=== PATIENT | female | born 2000 | race Caucasian/White ===

== ENCOUNTER 2020-02-16 16:11 | Emergency (ER) | payer MEDICAID, OTHER ==
[2020-02-16 16:22] VITALS: BP 105/67
--- NOTE | 2020-02-16 17:44 | ED Physician Documentation ---
PD HPI LOWER EXT INJURY - Stated complaint Stated Complaint: RT LEG LAC - Chief complaint Chief Complaint: Laceration - History obtained from History obtained from: Patient - Additional information Additional information: Patient comes emergency department complaining of a leg laceration on the right. She states that it happened when she was taking out the trash. Her mother had put some broken glass from a picture frame into the trash bag, and patient did not realize it was there. While she was caring out the trash, the bag brushed against her leg, and the glass broke through and cut the lateral aspect of her calf. Patient denies any other injuries at this time. She has not had any difficulty ambulating or moving the ankle and toes. She states the incident happened within the last hour. No other complaints at this time.Patient states her last tetanus shot was about 8 years ago. Review of Systems Ten Systems: 10 systems reviewed and negative Constitutional: reports: Reviewed and negative Eyes: reports: Reviewed and negative Ears: reports: Reviewed and negative Nose: reports: Reviewed and negative Throat: reports: Reviewed and negative Cardiac: reports: Reviewed and negative Respiratory: reports: Reviewed and negative GI: reports: Reviewed and negative : reports: Reviewed and negative Skin: reports: Laceration (s) Musculoskeletal: reports: Reviewed and negative Neurologic: reports: Reviewed and negative Psychiatric: reports: Reviewed and negative Endocrine: reports: Reviewed and negative Immunocompromised: reports: Reviewed and negative PD PAST MEDICAL HISTORY - Past Surgical History Past Surgical History: No - Present Medications Home Medications: Ambulatory Orders Medication Instructions Recorded Confirmed No Known Home Medications 12/29/15 12/29/15 - Allergies Allergies/Adverse Reactions: Allergies Allergy/AdvReac Type Severity Reaction Status Date / Time No Known Drug Allergies Allergy Verified 12/29/15 16:44 - Social History Does the pt smoke?: No Smoking Status: Never smoker Does the pt drink ETOH?: No Does the pt have substance abuse?: No - Immunizations Immunizations are current?: Yes - POLST Patient has POLST: No PD ED PE NORMAL - Vitals Vital signs reviewed: Yes - General General: Alert and oriented X 3, No acute distress - HEENT HEENT: Atraumatic, PERRL, EOMI, Moist mucous membranes - Neck Neck: Supple, no meningeal sign - Cardiac Cardiac: Strong equal pulses - Respiratory Respiratory: No respiratory distress - Derm Derm: Normal color, Warm and dry, No rash, Other (Patient has a 3-1/2 cm linear laceration to the proximal aspect of her lateral right lower leg. Bleeding is controlled. Laceration depth ranges from approximately 3 to 5 mm across its length.) - Extremities Extremities: No deformity - Neuro Neuro: Alert and oriented X 3 - Psych Psych: Normal mood, Normal affect Results - Vitals Vitals: Vital Signs - 24 hr 02/16/20 16:18 Temperature 36.5 C Heart Rate 86 Respiratory 16 Rate Blood Pressure 105/67 O2 Saturation 97 Oxygen O2 Source Room air Procedures - Laceration (location) R leg Length in cm: 3.5 Wound type: Linear, Into subcut fat, Clean Neurovascular status: Sensory intact, Motor intact, Vascular intact Tendon involvement: No: Tendon Injury Anesthesia: Lidocaine 1% with epi Wound Preparation: Betadine, Irrigated copiously NS Skin layer closure: Nylon, Interrupted, Size #-0 - enter number (4.0), Sutures - enter # (8) Other: Patient tolerated well, No complications, Neurovascular intact, Dressing applied, Tetanus UTD Complexity: Intermediate PD MEDICAL DECISION MAKING - ED course Complexity details: d/w patient ED course: Patient's wound was repaired, as above.We have discussed wound care at home, as well as the timeline for suture removal which should be about 7 days from now. We have discussed signs of infection, which should prompt immediate reevaluation of the wound. Departure - Departure Disposition: 01 Home, Self Care Clinical Impression: Laceration Condition: Good Instructions: ED Laceration All Comments: 8 sutures have been placed to close your wound today. These should be removed in approximately 7 days. They may be taken out by your primary care physician, urgent care provider, or at the emergency department. You may allow water and soap to run over the wound, but do not rub, scrub, or immerse the wound until the sutures have been removed. This is to prevent infection. If your wound develops redness that is spreading away from the wound, along with swelling, and/or splits open and begins to drain what appears to be pus, you should have the wound rechecked right away. Otherwise, with proper cleansing of the wound prior to suturing, most wounds will not develop infection. Discharge Date/Time: 02/16/20 18:03
[2020-02-16] MEDS ORDERED: BACITRACIN ZINC OINT 1 PACKET TOP STA (17:50)
== END 2020-02-16 18:03 | disposition home or self-care (01) ==
LOC: ED 16:11
DX: S81.811A Laceration without foreign body, right lower leg, initial encounter (principal); W25.XXXA Contact with sharp glass, initial encounter; Y93.E9 Activity, other interior property and clothing maintenance; Y92.009 Unspecified place in unspecified non-institutional (private) residence as the place of occurrence of the external cause
CPT/HCPCS: 12032; 99281; 99282; A9270